=== PATIENT | female | born 1955 | race Caucasian/White ===

== ENCOUNTER 2019-10-23 14:34 | Observation (INO) ==
[2019-10-23] MEDS ORDERED: methylPREDNISolone 125 MG/2 ML VIAL IVP ONE (14:52)
[2019-10-23] MEDS ORDERED: Ipratropium/Albuterol Neb 3 ML IH ONE (14:52)
[2019-10-23] MEDS ORDERED: levoFLOXacin 750 MG/150 ML 750 MG/150 ML BAG IVPB ONE (14:59)
[2019-10-23 15:19] LABS: Basophils # 0.1 K/mcL (0.0-0.2); Basophils % 0.5 %; Eosinophils # 0.1 K/mcL (0.0-0.6); Eosinophils % 0.9 %; Hematocrit 39.6 % (35.3-44.9); Hemoglobin 12.9 g/dL (11.5-15.4); Immature Granulocytes % 1.7 % (0-4); Lymphocytes # 2.4 K/mcL (0.6-4.6); Mean Corpuscular HGB Conc 32.6 g/dL (31.6-35.5); Mean Corpuscular Hemoglobin 30.7 pg (28.0-33.3); Mean Corpuscular Volume 94.3 fL (83.0-100.0); Mean Platelet Volume 10.6 fL (9.4-12.4); Monocytes # 0.8 K/mcL (0.0-1.3); Monocytes % 6.3 %; Platelet Count 294 K/mcL (140-400); Red Cell Distribution Width 12.9 % (11.5-14.5); Segmented Neutrophils % 71.6 %; White Blood Count 12.6 K/mcL (4.3-11.1)
[2019-10-23 15:35] LABS: BUN/Creatinine Ratio 21 (6-26); Blood Urea Nitrogen 13 mg/dL (8-23); Calcium 9.6 mg/dL (8.6-10.3); Carbon Dioxide 31 mEq/L (23-29); Chloride 100 mEq/L (98-107); Glucose 148 mg/dL (70-105); Osmolality,Calculated 291 (280-300); Potassium 2.7 mEq/L (3.5-5.1); Sodium 139 mEq/L (136-145); eGFR For African Americans > 60 (> 60); eGFR For Non-African Americans > 60 (> 60)
[2019-10-23 15:36] LABS: Troponin I < 0.03 ng/mL (< 0.04)
[2019-10-23] MEDS ORDERED: 0.9 % Sodium Chloride 1,000 ML IVC ONE (15:38)
[2019-10-23 16:17] LABS: Magnesium 1.7 mg/dL (1.6-2.6)
[2019-10-23] MEDS ORDERED: Ondansetron 4 MG/2 ML VIAL IVP PRN (16:40)
[2019-10-23] MEDS ORDERED: Naloxone 0.4 MG/ML INJ IVP PRN (16:40)
[2019-10-23] MEDS ORDERED: *HR* HYDROcodone/Acet 7.5/325 mg TABLET PO ONE (17:01)
[2019-10-23] MEDS ORDERED: Isovue-370 500 ML BOTTLE IVP ONE (17:01)
[2019-10-23] MEDS: *HR* Heparin 5,000 UNIT/ML VIAL SQ SCH (21:03)
[2019-10-23] MEDS: Ipratropium/Albuterol Neb 3 ML IH SCH (22:19)
[2019-10-24] MEDS: Ipratropium/Albuterol Neb 3 ML IH SCH ×4 (04:13→22:39)
[2019-10-24] MEDS: *HR* Heparin 5,000 UNIT/ML VIAL SQ SCH ×3 (05:56→22:55)
[2019-10-24] MEDS: MethylPREDNISolone 40 MG/ML VIAL IVP SCH ×2 (05:56→17:45)
[2019-10-24 07:02] LABS: Basophils % 0.4 %; Eosinophils % 0.1 %; Hematocrit 33.9 % (35.3-44.9); Lymphocytes # 2.1 K/mcL (0.6-4.6); Lymphocytes % 22.5 %; Mean Corpuscular HGB Conc 32.4 g/dL (31.6-35.5); Mean Corpuscular Hemoglobin 30.6 pg (28.0-33.3); Mean Corpuscular Volume 94.4 fL (83.0-100.0); Mean Platelet Volume 10.6 fL (9.4-12.4); Monocytes # 0.7 K/mcL (0.0-1.3); Monocytes % 7.8 %; Neutrophils # 6.2 K/mcL (1.6-8.9); Platelet Count 247 K/mcL (140-400); Red Blood Count 3.59 M/mcL (3.82-4.97); Segmented Neutrophils % 67.2 %; White Blood Count 9.3 K/mcL (4.3-11.1)
[2019-10-24 07:21] LABS: BUN/Creatinine Ratio 28 (6-26); Blood Urea Nitrogen 14 mg/dL (8-23); Calcium 8.9 mg/dL (8.6-10.3); Carbon Dioxide 27 mEq/L (23-29); Chloride 106 mEq/L (98-107); Glucose 110 mg/dL (70-105); Osmolality,Calculated 295 (280-300); Sodium 142 mEq/L (136-145); eGFR For African Americans > 60 (> 60); eGFR For Non-African Americans > 60 (> 60)
[2019-10-24] MEDS: levoFLOXacin 750 MG/150 ML 750 MG/150 ML BAG IVPB SCH (09:39)
[2019-10-24] MEDS: Budesonide/Formoterol 160/4.5 1 PUFF INH IH SCH ×2 (09:54→22:39)
[2019-10-24] MEDS: clonazePAM 1 MG TABLET PO SCH ×2 (17:44→20:01)
[2019-10-24] MEDS: Acetaminophen 325 MG TABLET PO PRN (17:44)
[2019-10-24] MEDS: Topiramate 100 MG TABLET PO SCH (20:00)
[2019-10-24] MEDS: Mirtazapine 15 MG TABLET PO SCH (20:01)
[2019-10-24] MEDS: OLANZapine 10 MG TAB.RAPDIS PO SCH (20:01)
[2019-10-25] MEDS: Acetaminophen 325 MG TABLET PO PRN (00:35)
[2019-10-25] MEDS: Ipratropium/Albuterol Neb 3 ML IH SCH ×4 (03:26→21:45)
[2019-10-25] MEDS: *HR* Heparin 5,000 UNIT/ML VIAL SQ SCH ×3 (06:10→21:06)
[2019-10-25] MEDS: MethylPREDNISolone 40 MG/ML VIAL IVP SCH ×2 (06:10→20:38)
[2019-10-25] MEDS: levoFLOXacin 750 MG/150 ML 750 MG/150 ML BAG IVPB SCH (09:15)
[2019-10-25] MEDS: clonazePAM 1 MG TABLET PO SCH ×4 (09:16→21:06)
[2019-10-25] MEDS: BuPROPion XL (24 HR) 150 MG TABLET PO SCH (09:16)
[2019-10-25] MEDS: Loratadine 10 MG TABLET PO SCH (09:16)
[2019-10-25] MEDS: Fluticasone Propionate Nasal 50 MCG/SPRAY BOTTLE NS SCH (09:17)
[2019-10-25] MEDS: Budesonide/Formoterol 160/4.5 1 PUFF INH IH SCH ×2 (10:03→21:44)
[2019-10-25] MEDS: Topiramate 100 MG TABLET PO SCH (21:06)
[2019-10-25] MEDS: Mirtazapine 15 MG TABLET PO SCH (21:06)
[2019-10-25] MEDS: OLANZapine 10 MG TAB.RAPDIS PO SCH (21:06)
[2019-10-26] MEDS: Ipratropium/Albuterol Neb 3 ML IH SCH ×2 (03:31→09:35)
[2019-10-26] MEDS: MethylPREDNISolone 40 MG/ML VIAL IVP SCH (06:00)
[2019-10-26] MEDS: *HR* Heparin 5,000 UNIT/ML VIAL SQ SCH ×2 (06:01→13:02)
[2019-10-26 07:34] VITALS: BP 142/77
[2019-10-26] MEDS ORDERED: levoFLOXacin 750 MG TABLET PO SCH (09:00)
[2019-10-26] MEDS: Budesonide/Formoterol 160/4.5 1 PUFF INH IH SCH (09:35)
[2019-10-26] MEDS: Loratadine 10 MG TABLET PO SCH (10:07)
[2019-10-26] MEDS: clonazePAM 1 MG TABLET PO SCH ×2 (10:07→12:59)
[2019-10-26] MEDS: Fluticasone Propionate Nasal 50 MCG/SPRAY BOTTLE NS SCH (10:07)
[2019-10-26] MEDS: BuPROPion XL (24 HR) 150 MG TABLET PO SCH (10:07)
[2019-10-27] MEDS ORDERED: predniSONE 20 MG TABLET PO SCH (09:00)
== END 2019-10-26 14:27 | disposition home or self-care (01) ==
LOC: 2ANU 14:34 → EMEROOARM 14:34 → SUATTDRO 16:12 → 2ANU 17:45
PROVIDERS: ADMIT Family Medicine; ATTEND Family Medicine

== ENCOUNTER 2019-11-29 21:46 | Observation (INO) ==
[2019-11-29] MEDS ORDERED: Isovue-370 500 ML BOTTLE IVP ONE (22:27)
[2019-11-29] MEDS ORDERED: Ipratropium/Albuterol Neb 3 ML IH ONE (22:28)
[2019-11-29] MEDS ORDERED: 0.9 % Sodium Chloride 1,000 ML IVC ONE (22:28)
[2019-11-29] MEDS ORDERED: Ondansetron 4 MG/2 ML VIAL IVP ONE (22:28)
[2019-11-29] MEDS ORDERED: methylPREDNISolone 125 MG/2 ML VIAL IVP ONE (22:28)
[2019-11-29 22:37] LABS: Basophils % 0.2 %; Eosinophils # 0.1 K/mcL (0.0-0.6); Eosinophils % 0.7 %; Hematocrit 40.8 % (35.3-44.9); Lymphocytes # 2.2 K/mcL (0.6-4.6); Lymphocytes % 13.3 %; Mean Corpuscular HGB Conc 31.9 g/dL (31.6-35.5); Mean Corpuscular Hemoglobin 30.9 pg (28.0-33.3); Mean Corpuscular Volume 96.9 fL (83.0-100.0); Mean Platelet Volume 9.9 fL (9.4-12.4); Monocytes # 0.6 K/mcL (0.0-1.3); Monocytes % 3.7 %; Neutrophils # 13.5 K/mcL (1.6-8.9); Platelet Count 269 K/mcL (140-400); Red Blood Count 4.21 M/mcL (3.82-4.97); Segmented Neutrophils % 81.1 %; White Blood Count 16.6 K/mcL (4.3-11.1)
[2019-11-29 22:57] LABS: Alanine Aminotransferase 12 Units/L (7-52); Albumin 3.6 g/dL (3.5-5.7); Albumin/Globulin Ratio 1.4 (1.1-2.2); Alkaline Phosphatase 74 Units/L (34-104); Aspartate Amino Transferase 14 Units/L (13-39); BUN/Creatinine Ratio 19 (6-26); Bilirubin,Indirect 0.2 mg/dL (0.0-1.0); Bilirubin,Total 0.2 mg/dL (0.3-1.0); Blood Urea Nitrogen 14 mg/dL (8-23); Carbon Dioxide 31 mEq/L (23-29); Chloride 105 mEq/L (98-107); Globulin 2.6 g/dL (2.4-3.5); Glucose 130 mg/dL (70-105); Lipase 48 Units/L (11-82); Osmolality,Calculated 298 (280-300); Potassium 3.4 mEq/L (3.5-5.1); Sodium 143 mEq/L (136-145); Total Protein 6.2 g/dL (6.4-8.9); eGFR For African Americans > 60 (> 60); eGFR For Non-African Americans > 60 (> 60)
[2019-11-29 22:59] LABS: Troponin I < 0.03 ng/mL (< 0.04)
[2019-11-29 23:22] LABS: Bilirubin,Urine Small (Negative); Blood,Urine Negative (Negative); Clarity,Urine Cloudy (Clear); Color,Urine Dark Yellow (Yellow); Glucose,Urine (UA) Normal (Normal); Ketones,Urine Negative (Negative); Leukocyte Esterase,Urine Small (Negative); Nitrite,Urine Negative (Negative); Protein,Urine 30 mg/dL (Neg-Trace); Specific Gravity,Urine 1.021 (1.010-1.025); Urobilinogen,Urine Normal (Normal)
[2019-11-29 23:25] LABS: Bacteria,Urine None Seen per hpf (None-Few); Hyaline Casts,Urine None Seen per lpf (None-Few); Squamous Epithelial Cell,Urine Many per lpf (None-Few)
[2019-11-30] MEDS ORDERED: Ondansetron ODT 4 MG TAB.RAPDIS SL PRN (07:19)
[2019-11-30] MEDS ORDERED: Naloxone 0.4 MG/ML INJ IVP PRN (07:19)
[2019-11-30] MEDS ORDERED: Ipratropium/Albuterol Neb 3 ML IH PRN (07:20)
[2019-11-30] MEDS: Ipratropium/Albuterol Neb 3 ML IH SCH ×5 (08:04→23:14)
[2019-11-30] MEDS: Azithromycin 500 MG in 0.9 % Sodium Chloride 250 ML IVPB SCH (08:42)
[2019-11-30] MEDS: Loratadine 10 MG TABLET PO SCH (08:43)
[2019-11-30] MEDS: clonazePAM 1 MG TABLET PO SCH ×4 (08:43→22:30)
[2019-11-30] MEDS: BuPROPion XL (24 HR) 150 MG TABLET PO SCH (08:43)
[2019-11-30] MEDS: MethylPREDNISolone 40 MG/ML VIAL IVP SCH (08:44)
[2019-11-30] MEDS: Fluticasone Propionate Nasal 50 MCG/SPRAY BOTTLE NS SCH (09:02)
[2019-11-30 10:58] LABS: Basophils % 0.1 %; Hematocrit 36.1 % (35.3-44.9); Immature Granulocytes % 0.5 % (0-4); Lymphocytes # 0.6 K/mcL (0.6-4.6); Mean Corpuscular HGB Conc 30.2 g/dL (31.6-35.5); Mean Corpuscular Hemoglobin 30.9 pg (28.0-33.3); Mean Corpuscular Volume 102.3 fL (83.0-100.0); Mean Platelet Volume 10.5 fL (9.4-12.4); Monocytes # 0.2 K/mcL (0.0-1.3); Monocytes % 1.5 %; Neutrophils # 10.3 K/mcL (1.6-8.9); Platelet Count 215 K/mcL (140-400); Red Blood Count 3.53 M/mcL (3.82-4.97); Red Cell Distribution Width 14.1 % (11.5-14.5); Segmented Neutrophils % 92.9 %; White Blood Count 11.1 K/mcL (4.3-11.1)
[2019-11-30 11:00] LABS: Hemoglobin 10.9 g/dL (11.5-15.4)
[2019-11-30] MEDS: Acetaminophen 325 MG TABLET PO PRN ×2 (11:09→17:49)
[2019-11-30 11:15] LABS: BUN/Creatinine Ratio 25 (6-26); Blood Urea Nitrogen 14 mg/dL (8-23); Calcium 8.3 mg/dL (8.6-10.3); Carbon Dioxide 29 mEq/L (23-29); Chloride 108 mEq/L (98-107); Glucose 204 mg/dL (70-105); Osmolality,Calculated 298 (280-300); Potassium 4.2 mEq/L (3.5-5.1); Sodium 141 mEq/L (136-145); eGFR For African Americans > 60 (> 60); eGFR For Non-African Americans > 60 (> 60)
[2019-11-30] MEDS: *HR* Heparin 5,000 UNIT/ML VIAL SQ SCH (17:49)
[2019-11-30] MEDS ORDERED: Mirtazapine 15 MG TABLET PO SCH (21:00)
[2019-11-30] MEDS ORDERED: OLANZAPINE 20 MG PO SCH (21:00)
[2019-11-30] MEDS ORDERED: Topiramate 100 MG TABLET PO SCH (21:00)
[2019-12-01] MEDS: Ipratropium/Albuterol Neb 3 ML IH SCH ×2 (03:48→07:53)
[2019-12-01 05:02] VITALS: BP 132/73
[2019-12-01 05:47] LABS: Basophils % 0.1 %; Eosinophils # 0.1 K/mcL (0.0-0.6); Eosinophils % 0.6 %; Hematocrit 36.3 % (35.3-44.9); Hemoglobin 10.9 g/dL (11.5-15.4); Immature Granulocytes % 0.6 % (0-4); Lymphocytes # 3.7 K/mcL (0.6-4.6); Lymphocytes % 26.9 %; Mean Corpuscular Hemoglobin 30.8 pg (28.0-33.3); Mean Corpuscular Volume 102.5 fL (83.0-100.0); Mean Platelet Volume 10.1 fL (9.4-12.4); Monocytes # 0.7 K/mcL (0.0-1.3); Monocytes % 5.1 %; Neutrophils # 9.1 K/mcL (1.6-8.9); Platelet Count 211 K/mcL (140-400); Red Blood Count 3.54 M/mcL (3.82-4.97); Red Cell Distribution Width 14.1 % (11.5-14.5); Segmented Neutrophils % 66.7 %; White Blood Count 13.7 K/mcL (4.3-11.1)
[2019-12-01] MEDS: *HR* Heparin 5,000 UNIT/ML VIAL SQ SCH (05:49)
[2019-12-01 06:06] LABS: BUN/Creatinine Ratio 25 (6-26); Blood Urea Nitrogen 17 mg/dL (8-23); Calcium 8.7 mg/dL (8.6-10.3); Carbon Dioxide 33 mEq/L (23-29); Chloride 106 mEq/L (98-107); Glucose 91 mg/dL (70-105); Osmolality,Calculated 299 (280-300); Potassium 4.1 mEq/L (3.5-5.1); Sodium 144 mEq/L (136-145); eGFR For African Americans > 60 (> 60); eGFR For Non-African Americans > 60 (> 60)
[2019-12-01] MEDS: Loratadine 10 MG TABLET PO SCH (09:51)
[2019-12-01] MEDS: clonazePAM 1 MG TABLET PO SCH (09:51)
[2019-12-01] MEDS: BuPROPion XL (24 HR) 150 MG TABLET PO SCH (09:51)
[2019-12-01] MEDS: MethylPREDNISolone 40 MG/ML VIAL IVP SCH (09:52)
[2019-12-01] MEDS: Azithromycin 500 MG in 0.9 % Sodium Chloride 250 ML IVPB SCH (09:52)
[2019-12-01] MEDS: Fluticasone Propionate Nasal 50 MCG/SPRAY BOTTLE NS SCH (09:53)
== END 2019-12-01 11:46 | disposition home or self-care (01) ==
LOC: 3ANU 21:46 → EMEROOARM 21:46 → SUATTDRO 11-30 01:21 → 3ANU 11-30 02:02
PROVIDERS: ADMIT Family Medicine; ATTEND Internal Medicine

== ENCOUNTER 2021-06-16 10:38 | Inpatient (IN) ==
[2021-06-16] MEDS ORDERED: Ipratropium/Albuterol Neb 3 ML IH ONE (11:06)
[2021-06-16] MEDS ORDERED: methylPREDNISolone 125 MG/2 ML VIAL IVP ONE (11:06)
[2021-06-16 11:31] LABS: Basophils % 0.4 %; Eosinophils % 0.4 %; Hematocrit 35.8 % (35.3-44.9); Hemoglobin 10.6 g/dL (11.5-15.4); Immature Granulocytes % 0.3 % (0-4); Lymphocytes # 1.1 K/mcL (0.6-4.6); Lymphocytes % 13.4 %; Mean Corpuscular HGB Conc 29.6 g/dL (31.6-35.5); Mean Corpuscular Hemoglobin 29.5 pg (28.0-33.3); Mean Corpuscular Volume 99.7 fL (83.0-100.0); Mean Platelet Volume 11.2 fL (9.4-12.4); Monocytes # 0.4 K/mcL (0.0-1.3); Monocytes % 5.6 %; Neutrophils # 6.3 K/mcL (1.6-8.9); Platelet Count 229 K/mcL (140-400); Red Blood Count 3.59 M/mcL (3.82-4.97); Red Cell Distribution Width 12.8 % (11.5-14.5); Segmented Neutrophils % 79.9 %; White Blood Count 7.9 K/mcL (4.3-11.1)
[2021-06-16 12:24] LABS: BUN/Creatinine Ratio 18 (6-26); Blood Urea Nitrogen 10 mg/dL (8-23); Calcium 9.4 mg/dL (8.6-10.3); Carbon Dioxide 40 mEq/L (23-29); Chloride 93 mEq/L (98-107); Glucose 126 mg/dL (70-105); Osmolality,Calculated 289 (280-300); Potassium 4.3 mEq/L (3.5-5.1); Sodium 139 mEq/L (136-145); Troponin I < 0.03 ng/mL (< 0.04); eGFR For African Americans > 60 (> 60); eGFR For Non-African Americans > 60 (> 60)
[2021-06-16] MEDS ORDERED: Ondansetron ODT 4 MG TAB.RAPDIS SL ONE (13:40)
[2021-06-16 14:33] LABS: VBG HCO3 42 mEq/L (21-27); VBG PCO2 89 mmHg (41-51); VBG PH 7.29 pH Units (7.32-7.42); VBG PO2 59 mmHg (25-50)
[2021-06-16] MEDS ORDERED: Naloxone 0.4 MG/ML INJ IVP PRN (16:51)
[2021-06-16] MEDS ORDERED: Ondansetron 4 MG/2 ML VIAL IVP PRN (16:51)
[2021-06-16] MEDS ORDERED: Isovue-370 500 ML BOTTLE IVP ONE (17:09)
[2021-06-16] MEDS: Ipratropium/Albuterol Neb 3 ML IH SCH (20:55)
[2021-06-16] MEDS ORDERED: *HR* LORazepam 2 MG/ML VIAL IVP ONE (22:29)
[2021-06-16] MEDS: methylPREDNISolone 125 MG/2 ML VIAL IVP SCH (22:42)
[2021-06-17] MEDS: Ipratropium/Albuterol Neb 3 ML IH SCH ×7 (00:08→23:20)
[2021-06-17 00:34] LABS: Basophils % 0.2 %; Hematocrit 34.2 % (35.3-44.9); Hemoglobin 10.2 g/dL (11.5-15.4); Immature Granulocytes % 0.2 % (0-4); Lymphocytes # 0.5 K/mcL (0.6-4.6); Lymphocytes % 9.3 %; Mean Corpuscular HGB Conc 29.8 g/dL (31.6-35.5); Mean Corpuscular Hemoglobin 28.7 pg (28.0-33.3); Mean Corpuscular Volume 96.1 fL (83.0-100.0); Mean Platelet Volume 10.8 fL (9.4-12.4); Monocytes # 0.3 K/mcL (0.0-1.3); Monocytes % 4.8 %; Neutrophils # 4.5 K/mcL (1.6-8.9); Platelet Count 217 K/mcL (140-400); Red Blood Count 3.56 M/mcL (3.82-4.97); Red Cell Distribution Width 12.8 % (11.5-14.5); Segmented Neutrophils % 85.5 %; White Blood Count 5.3 K/mcL (4.3-11.1)
[2021-06-17 00:37] LABS: VBG HCO3 37 mEq/L (21-27); VBG PCO2 62 mmHg (41-51); VBG PH 7.39 pH Units (7.32-7.42); VBG PO2 70 mmHg (25-50)
[2021-06-17 00:57] LABS: Alanine Aminotransferase 9 Units/L (7-52); Albumin 3.7 g/dL (3.5-5.7); Albumin/Globulin Ratio 1.3 (1.1-2.2); Alkaline Phosphatase 120 Units/L (34-104); Aspartate Amino Transferase 11 Units/L (13-39); BUN/Creatinine Ratio 33 (6-26); Bilirubin,Total 0.4 mg/dL (0.3-1.0); Blood Urea Nitrogen 16 mg/dL (8-23); Calcium 9.3 mg/dL (8.6-10.3); Carbon Dioxide 40 mEq/L (23-29); Chloride 95 mEq/L (98-107); Chol/HDL Ratio 3.1 (0-4.9); Cholesterol 217 mg/dL (< 200); Globulin 2.8 g/dL (2.4-3.5); Glucose 96 mg/dL (70-105); HDL Cholesterol 70 mg/dL (40-59); LDL Cholesterol,Calculated 127 mg/dL (< 100); Osmolality,Calculated 291 (280-300); Sodium 140 mEq/L (136-145); Total Protein 6.5 g/dL (6.4-8.9); Triglycerides 102 mg/dL (< 150); eGFR For African Americans > 60 (> 60); eGFR For Non-African Americans > 60 (> 60)
[2021-06-17] MEDS: methylPREDNISolone 125 MG/2 ML VIAL IVP SCH ×4 (02:18→17:46)
[2021-06-17 03:44] LABS: ABG Base Excess 5 mEq/L (-2 to 3); ABG HCO3 36 mEq/L (21-27); ABG Oxygen Saturation 92 % (95-98); ABG PCO2 89 mmHg (35-45); ABG PH 7.22 pH Units (7.32-7.45); ABG PO2 80 mmHg (85-104); ABG TCO2 39 mEq/L (20-26)
[2021-06-17 03:57] LABS: ABG Base Excess 15 mEq/L (-2 to 3); ABG HCO3 44 mEq/L (21-27); ABG Oxygen Saturation 96 % (95-98); ABG PCO2 75 mmHg (35-45); ABG PH 7.37 pH Units (7.32-7.45); ABG PO2 87 mmHg (85-104); ABG TCO2 46 mEq/L (20-26)
[2021-06-17] MEDS: clonazePAM 0.5 MG TABLET PO PRN (12:30)
[2021-06-17] MEDS: Gabapentin 300 MG CAPSULE PO SCH ×2 (14:47→19:42)
[2021-06-17] MEDS: Budesonide/Formoterol 160/4.5 1 PUFF INH IH SCH (19:46)
[2021-06-18] MEDS: methylPREDNISolone 125 MG/2 ML VIAL IVP SCH ×4 (02:00→17:43)
[2021-06-18] MEDS: Fluticasone Propionate Nasal 50 MCG/SPRAY BOTTLE NS SCH ×3 (02:02→19:21)
[2021-06-18 03:56] LABS: Basophils % 0.1 %; Hematocrit 34.6 % (35.3-44.9); Hemoglobin 10.6 g/dL (11.5-15.4); Immature Granulocytes % 0.3 % (0-4); Lymphocytes # 1.9 K/mcL (0.6-4.6); Lymphocytes % 18.7 %; Mean Corpuscular HGB Conc 30.6 g/dL (31.6-35.5); Mean Corpuscular Hemoglobin 28.2 pg (28.0-33.3); Mean Platelet Volume 11.5 fL (9.4-12.4); Monocytes # 0.8 K/mcL (0.0-1.3); Monocytes % 7.4 %; Neutrophils # 7.5 K/mcL (1.6-8.9); Platelet Count 271 K/mcL (140-400); Red Blood Count 3.76 M/mcL (3.82-4.97); Red Cell Distribution Width 13.2 % (11.5-14.5); Segmented Neutrophils % 73.5 %
[2021-06-18 03:57] LABS: White Blood Count 10.2 K/mcL (4.3-11.1)
[2021-06-18 04:18] LABS: BUN/Creatinine Ratio 46 (6-26); Blood Urea Nitrogen 26 mg/dL (8-23); Calcium 9.7 mg/dL (8.6-10.3); Carbon Dioxide 35 mEq/L (23-29); Chloride 95 mEq/L (98-107); Glucose 94 mg/dL (70-105); Osmolality,Calculated 291 (280-300); Potassium 3.8 mEq/L (3.5-5.1); Sodium 138 mEq/L (136-145); eGFR For African Americans > 60 (> 60); eGFR For Non-African Americans > 60 (> 60)
[2021-06-18] MEDS: Ipratropium/Albuterol Neb 3 ML IH SCH ×6 (04:34→23:24)
[2021-06-18 04:46] LABS: ABG Base Excess 10 mEq/L (-2 to 3); ABG HCO3 37 mEq/L (21-27); ABG Oxygen Saturation 96 % (95-98); ABG PCO2 58 mmHg (35-45); ABG PH 7.41 pH Units (7.32-7.45); ABG PO2 81 mmHg (85-104); ABG TCO2 39 mEq/L (20-26)
[2021-06-18] MEDS: Budesonide/Formoterol 160/4.5 1 PUFF INH IH SCH ×2 (07:40→19:56)
[2021-06-18] MEDS: BuPROPion XL (24 HR) 150 MG TABLET PO SCH (09:25)
[2021-06-18] MEDS: lisinopriL 20 MG TABLET PO SCH (09:25)
[2021-06-18] MEDS: Gabapentin 300 MG CAPSULE PO SCH ×3 (09:26→19:21)
[2021-06-18] MEDS ORDERED: Acetaminophen 325 MG TABLET PO PRN (11:22)
[2021-06-18] MEDS: clonazePAM 0.5 MG TABLET PO PRN (14:57)
[2021-06-19] MEDS: methylPREDNISolone 125 MG/2 ML VIAL IVP SCH ×5 (00:24→23:37)
[2021-06-19] MEDS: Ipratropium/Albuterol Neb 3 ML IH SCH ×6 (03:48→23:14)
[2021-06-19] MEDS: Budesonide/Formoterol 160/4.5 1 PUFF INH IH SCH ×2 (07:25→19:47)
[2021-06-19 08:28] LABS: BUN/Creatinine Ratio 43 (6-26); Blood Urea Nitrogen 30 mg/dL (8-23); Calcium 9.7 mg/dL (8.6-10.3); Carbon Dioxide 37 mEq/L (23-29); Chloride 92 mEq/L (98-107); Glucose 118 mg/dL (70-105); Osmolality,Calculated 285 (280-300); Potassium 4.4 mEq/L (3.5-5.1); Sodium 134 mEq/L (136-145); eGFR For African Americans > 60 (> 60); eGFR For Non-African Americans > 60 (> 60)
[2021-06-19] MEDS: lisinopriL 20 MG TABLET PO SCH (09:08)
[2021-06-19] MEDS: BuPROPion XL (24 HR) 150 MG TABLET PO SCH (09:08)
[2021-06-19] MEDS: Fluticasone Propionate Nasal 50 MCG/SPRAY BOTTLE NS SCH ×2 (09:11→20:22)
[2021-06-19] MEDS: Gabapentin 300 MG CAPSULE PO SCH ×3 (09:11→20:21)
[2021-06-19] MEDS: clonazePAM 0.5 MG TABLET PO PRN ×2 (09:15→20:21)
[2021-06-19] MEDS: *HR* Enoxaparin 30 MG/0.3 ML SYRINGE SQ SCH (12:45)
[2021-06-19 13:03] LABS: Hematocrit 36.3 % (35.3-44.9); Hemoglobin 11.2 g/dL (11.5-15.4); Immature Granulocytes % 0.4 % (0-4); Lymphocytes # 0.5 K/mcL (0.6-4.6); Lymphocytes % 4.7 %; Mean Corpuscular HGB Conc 30.9 g/dL (31.6-35.5); Mean Corpuscular Hemoglobin 28.4 pg (28.0-33.3); Mean Corpuscular Volume 92.1 fL (83.0-100.0); Mean Platelet Volume 12.1 fL (9.4-12.4); Monocytes # 0.3 K/mcL (0.0-1.3); Monocytes % 3.2 %; Neutrophils # 9.5 K/mcL (1.6-8.9); Platelet Count 289 K/mcL (140-400); Red Blood Count 3.94 M/mcL (3.82-4.97); Red Cell Distribution Width 13.2 % (11.5-14.5); Segmented Neutrophils % 91.7 %; White Blood Count 10.3 K/mcL (4.3-11.1)
[2021-06-19] MEDS ORDERED: Topiramate 100 MG TABLET PO SCH (21:00)
[2021-06-20 00:52] LABS: Basophils % 0.1 %; Hematocrit 33.7 % (35.3-44.9); Hemoglobin 10.3 g/dL (11.5-15.4); Immature Granulocytes % 0.4 % (0-4); Lymphocytes # 0.5 K/mcL (0.6-4.6); Lymphocytes % 4.4 %; Mean Corpuscular HGB Conc 30.6 g/dL (31.6-35.5); Mean Corpuscular Hemoglobin 28.6 pg (28.0-33.3); Mean Corpuscular Volume 93.6 fL (83.0-100.0); Mean Platelet Volume 11.6 fL (9.4-12.4); Monocytes # 0.4 K/mcL (0.0-1.3); Monocytes % 3.2 %; Neutrophils # 10.5 K/mcL (1.6-8.9); Platelet Count 239 K/mcL (140-400); Red Cell Distribution Width 13.3 % (11.5-14.5); Segmented Neutrophils % 91.9 %; White Blood Count 11.5 K/mcL (4.3-11.1)
[2021-06-20 01:09] LABS: Calcium 9.2 mg/dL (8.6-10.3); Potassium 4.3 mEq/L (3.5-5.1)
[2021-06-20] MEDS: Ipratropium/Albuterol Neb 3 ML IH SCH ×5 (04:26→20:13)
[2021-06-20] MEDS: methylPREDNISolone 125 MG/2 ML VIAL IVP SCH ×4 (05:03→23:34)
[2021-06-20] MEDS: *HR* Enoxaparin 30 MG/0.3 ML SYRINGE SQ SCH (05:03)
[2021-06-20 05:33] LABS: ABG Base Excess 7 mEq/L (-2 to 3); ABG HCO3 35 mEq/L (21-27); ABG Oxygen Saturation 93 % (95-98); ABG PCO2 60 mmHg (35-45); ABG PH 7.37 pH Units (7.32-7.45); ABG PO2 73 mmHg (85-104); ABG TCO2 36 mEq/L (20-26)
[2021-06-20] MEDS: Budesonide/Formoterol 160/4.5 1 PUFF INH IH SCH ×2 (07:12→20:13)
[2021-06-20] MEDS: BuPROPion XL (24 HR) 150 MG TABLET PO SCH (09:30)
[2021-06-20] MEDS: Gabapentin 300 MG CAPSULE PO SCH (09:30)
[2021-06-20] MEDS: lisinopriL 20 MG TABLET PO SCH (09:30)
[2021-06-20] MEDS: 0.9 % Sodium Chloride 1,000 ML IVC SCH ×2 (09:32→21:40)
[2021-06-20] MEDS: clonazePAM 0.5 MG TABLET PO PRN ×3 (09:32→21:41)
[2021-06-20] MEDS: Fluticasone Propionate Nasal 50 MCG/SPRAY BOTTLE NS SCH ×2 (09:33→23:34)
[2021-06-20 11:51] LABS: Bilirubin,Urine Negative (Negative); Blood,Urine Negative (Negative); Clarity,Urine Clear (Clear); Color,Urine Light-Yellow (Yellow); Glucose,Urine (UA) Normal (Normal); Ketones,Urine Negative (Negative); Leukocyte Esterase,Urine Negative (Negative); Nitrite,Urine Negative (Negative); PH,Urine 7.5 pH Units (5.0-8.0); Protein,Urine Negative (Neg-Trace); Specific Gravity,Urine 1.013 (1.010-1.025); Urobilinogen,Urine Normal (Normal)
[2021-06-20] MEDS ORDERED: Topiramate 25 MG TABLET PO SCH (21:00)
[2021-06-21] MEDS: Ipratropium/Albuterol Neb 3 ML IH SCH ×4 (00:05→11:19)
[2021-06-21 02:27] LABS: Basophils % 0.1 %; Hematocrit 36.6 % (35.3-44.9); Hemoglobin 10.9 g/dL (11.5-15.4); Immature Granulocytes % 0.5 % (0-4); Lymphocytes % 7.9 %; Mean Corpuscular HGB Conc 29.8 g/dL (31.6-35.5); Mean Corpuscular Hemoglobin 28.5 pg (28.0-33.3); Mean Corpuscular Volume 95.6 fL (83.0-100.0); Mean Platelet Volume 11.9 fL (9.4-12.4); Monocytes # 0.9 K/mcL (0.0-1.3); Monocytes % 6.9 %; Neutrophils # 10.8 K/mcL (1.6-8.9); Platelet Count 241 K/mcL (140-400); Red Blood Count 3.83 M/mcL (3.82-4.97); Red Cell Distribution Width 13.6 % (11.5-14.5); Segmented Neutrophils % 84.6 %; White Blood Count 12.7 K/mcL (4.3-11.1)
[2021-06-21 02:42] LABS: BUN/Creatinine Ratio 44 (6-26); Blood Urea Nitrogen 40 mg/dL (8-23); Calcium 8.9 mg/dL (8.6-10.3); Carbon Dioxide 30 mEq/L (23-29); Chloride 99 mEq/L (98-107); Glucose 84 mg/dL (70-105); Osmolality,Calculated 289 (280-300); Potassium 4.5 mEq/L (3.5-5.1); Sodium 135 mEq/L (136-145); eGFR For African Americans > 60 (> 60); eGFR For Non-African Americans > 60 (> 60)
[2021-06-21] MEDS: methylPREDNISolone 125 MG/2 ML VIAL IVP SCH ×2 (05:19→10:28)
[2021-06-21] MEDS: *HR* Enoxaparin 30 MG/0.3 ML SYRINGE SQ SCH (05:20)
[2021-06-21] MEDS: Budesonide/Formoterol 160/4.5 1 PUFF INH IH SCH (07:18)
[2021-06-21] MEDS: 0.9 % Sodium Chloride 1,000 ML IVC SCH (07:33)
[2021-06-21] MEDS: BuPROPion XL (24 HR) 150 MG TABLET PO SCH (07:34)
[2021-06-21] MEDS: Fluticasone Propionate Nasal 50 MCG/SPRAY BOTTLE NS SCH (07:35)
[2021-06-21] MEDS ORDERED: Nicotine 21 MG PATCH.TD24 TD SCH (09:00)
[2021-06-21] MEDS ORDERED: lisinopriL 10 MG TABLET PO SCH (10:15)
[2021-06-21] MEDS: clonazePAM 0.5 MG TABLET PO PRN (10:28)
[2021-06-21 10:58] VITALS: BP 117/55; PULSE 84; TEMP 98.2
[2021-06-21 13:28] VITALS: O2SAT 98
[2021-06-21] MEDS ORDERED: Gabapentin 300 MG CAPSULE PO SCH (15:00)
[2021-06-21] MEDS ORDERED: Topiramate 25 MG TABLET PO SCH (21:00)
== END 2021-06-21 14:06 | disposition home or self-care (01) | DRG 189 ==
LOC: SUATTDRO → 2ANU 10:38 → EMEROOARM 10:38 → SUATTDRO 19:19 → 2ANU 20:41 → SUATTDRO 06-18 08:13
PROVIDERS: ADMIT Hospitalist; ATTEND Internal Medicine

== ENCOUNTER 2021-07-24 14:32 | Inpatient (IN) ==
[2021-07-24] MEDS ORDERED: Isovue-370 500 ML BOTTLE IVP ONE ×2 (15:02→17:47)
[2021-07-24 15:33] LABS: Hemoglobin 10.1 g/dL (11.5-15.4); Mean Corpuscular Hemoglobin 28.5 pg (28.0-33.3); Mean Corpuscular Volume 95.8 fL (83.0-100.0)
[2021-07-24 15:35] LABS: Basophils % 0.1 %; Immature Granulocytes % 0.7 % (0-4); Lymphocytes # 0.7 K/mcL (0.6-4.6); Lymphocytes % 4.2 %; Mean Corpuscular HGB Conc 29.7 g/dL (31.6-35.5); Mean Platelet Volume 11.5 fL (9.4-12.4); Monocytes # 0.6 K/mcL (0.0-1.3); Monocytes % 3.6 %; Neutrophils # 16.1 K/mcL (1.6-8.9); Platelet Count 276 K/mcL (140-400); Red Blood Count 3.55 M/mcL (3.82-4.97); Segmented Neutrophils % 91.4 %; White Blood Count 17.6 K/mcL (4.3-11.1)
[2021-07-24 15:39] LABS: Prothrombin Time 11.4 Seconds (9.4-12.1)
[2021-07-24 15:42] LABS: Activated Partial Thrombo Time 25.1 Seconds (26.0-36.0)
[2021-07-24 15:50] LABS: ABG Base Excess 6 mEq/L (-2 to 3); ABG HCO3 32 mEq/L (21-27); ABG Oxygen Saturation 97 % (95-98); ABG PCO2 53 mmHg (35-45); ABG PH 7.39 pH Units (7.32-7.45); ABG PO2 99 mmHg (85-104); ABG TCO2 33 mEq/L (20-26)
[2021-07-24 15:54] LABS: Alanine Aminotransferase 13 Units/L (7-52); Albumin 4.5 g/dL (3.5-5.7); Albumin/Globulin Ratio 1.5 (1.1-2.2); Alkaline Phosphatase 96 Units/L (34-104); Aspartate Amino Transferase 19 Units/L (13-39); BUN/Creatinine Ratio 32 (6-26); Bilirubin,Direct 0.1 mg/dL (0.0-0.2); Bilirubin,Indirect 0.3 mg/dL (0.0-1.0); Bilirubin,Total 0.4 mg/dL (0.3-1.0); Blood Urea Nitrogen 21 mg/dL (8-23); Carbon Dioxide 34 mEq/L (23-29); Chloride 99 mEq/L (98-107); Ethanol < 10 mg/dL (Less than 10); Glucose 109 mg/dL (70-105); Osmolality,Calculated 296 (280-300); Potassium 4.2 mEq/L (3.5-5.1); Sodium 141 mEq/L (136-145); Total Protein 7.5 g/dL (6.4-8.9); Troponin I < 0.03 ng/mL (< 0.04); eGFR For African Americans > 60 (> 60); eGFR For Non-African Americans > 60 (> 60)
[2021-07-24 17:26] LABS: Bilirubin,Urine Negative (Negative); Blood,Urine Negative (Negative); Clarity,Urine Clear (Clear); Color,Urine Yellow (Yellow); Glucose,Urine (UA) Normal (Normal); Ketones,Urine Trace mg/dL (Negative); Leukocyte Esterase,Urine Negative (Negative); Nitrite,Urine Negative (Negative); Protein,Urine Trace mg/dL (Neg-Trace); Specific Gravity,Urine > 1.030 (1.010-1.025); Urobilinogen,Urine Normal (Normal)
[2021-07-24 17:41] LABS: Amphetamine Screen,Urine Negative ng/mL (Cutoff=1000); Barbiturate Screen,Urine Negative ng/mL (Cutoff=200); Benzodiazepines Screen,Urine Negative ng/mL (Cutoff=200); Cannabinoid Screen,Urine Negative ng/mL (Cutoff = 50); Cocaine Screen,Urine Negative ng/mL (Cutoff= 300); Opiate Screen,Urine Negative ng/mL (Cutoff=300); Phencyclidine Screen,Urine Negative ng/mL (Cutoff=25)
[2021-07-24] MEDS ORDERED: Cefepime HCl 2,000 MG in Water for inj. (sterile) 20 ML IVP ONE (18:21)
[2021-07-24] MEDS ORDERED: Vancomycin 500 MG in 0.9 % Sodium Chloride Mini Bag 100 ML IVPB ONE (18:36)
[2021-07-24] MEDS ORDERED: Vancomycin 500 MG in 0.9 % Sodium Chloride 250 ML IVPB SCH (19:00)
[2021-07-24] MEDS ORDERED: Acetaminophen 325 MG TABLET PO PRN (23:41)
[2021-07-24] MEDS ORDERED: Ondansetron 4 MG/2 ML VIAL IVP PRN (23:41)
[2021-07-24] MEDS ORDERED: Naloxone 0.4 MG/ML INJ IVP PRN (23:41)
[2021-07-25 00:08] LABS: Folate > 22.3 ng/mL (3.0-16.0); Vitamin B12 372 pg/mL (250-1100)
[2021-07-25] MEDS: Acyclovir 400 MG in D5% in Water 100 ML IVPB SCH ×3 (00:34→16:25)
[2021-07-25 00:52] LABS: Basophils % 0.1 %; Hemoglobin 9.3 g/dL (11.5-15.4); Lymphocytes % 8.7 %; Mean Corpuscular Hemoglobin 28.4 pg (28.0-33.3); Mean Corpuscular Volume 94.5 fL (83.0-100.0); Monocytes # 0.7 K/mcL (0.0-1.3); Monocytes % 6.2 %; Neutrophils # 10.1 K/mcL (1.6-8.9); Platelet Count 245 K/mcL (140-400); Red Blood Count 3.28 M/mcL (3.82-4.97); Red Cell Distribution Width 15.3 % (11.5-14.5)
[2021-07-25 01:12] LABS: Alanine Aminotransferase 13 Units/L (7-52); Albumin 4.2 g/dL (3.5-5.7); Albumin/Globulin Ratio 1.5 (1.1-2.2); Alkaline Phosphatase 88 Units/L (34-104); Aspartate Amino Transferase 18 Units/L (13-39); BUN/Creatinine Ratio 35 (6-26); Bilirubin,Total 0.3 mg/dL (0.3-1.0); Blood Urea Nitrogen 22 mg/dL (8-23); Calcium 9.5 mg/dL (8.6-10.3); Carbon Dioxide 32 mEq/L (23-29); Chloride 102 mEq/L (98-107); Globulin 2.8 g/dL (2.4-3.5); Glucose 136 mg/dL (70-105); Osmolality,Calculated 299 (280-300); Sodium 142 mEq/L (136-145); eGFR For African Americans > 60 (> 60); eGFR For Non-African Americans > 60 (> 60)
[2021-07-25] MEDS: Cefepime HCl 1,000 MG in Water for inj. (sterile) 10 ML IVP SCH ×2 (03:40→13:44)
[2021-07-25] MEDS: Vancomycin 500 MG in 0.9 % Sodium Chloride Mini Bag 100 ML IVPB SCH ×2 (06:05→18:35)
[2021-07-25] MEDS: *HR* Heparin 5,000 UNIT/ML VIAL SQ SCH ×2 (06:05→18:34)
[2021-07-25] MEDS: Budesonide/Formoterol 160/4.5 1 PUFF INH IH SCH (08:59)
[2021-07-25] MEDS ORDERED: Vancomycin 500 MG in 0.9 % Sodium Chloride 250 ML IVPB SCH (09:00)
[2021-07-25] MEDS ORDERED: predniSONE 20 MG TABLET PO SCH ×2 (09:00)
[2021-07-25] MEDS ORDERED: *HR* LORazepam 2 MG/ML VIAL IVP ONE (09:48)
[2021-07-25] MEDS ORDERED: *HR* LORazepam 2 MG/ML VIAL ONE (09:50)
[2021-07-25] MEDS: Aspirin 81 MG TAB.CHEW PO SCH (10:39)
[2021-07-25] MEDS: Fluticasone Propionate Nasal 50 MCG/SPRAY BOTTLE NS SCH ×2 (10:39→20:41)
[2021-07-25] MEDS: Topiramate 100 MG TABLET PO SCH ×2 (20:42→20:49)
[2021-07-26] MEDS: Acyclovir 400 MG in D5% in Water 100 ML IVPB SCH ×5 (00:08→23:55)
[2021-07-26] MEDS: *HR* Heparin 5,000 UNIT/ML VIAL SQ SCH ×2 (06:08→17:59)
[2021-07-26 06:19] LABS: Hematocrit 32.5 % (35.3-44.9); Hemoglobin 9.7 g/dL (11.5-15.4); Mean Corpuscular HGB Conc 29.8 g/dL (31.6-35.5); Mean Corpuscular Volume 93.7 fL (83.0-100.0); Mean Platelet Volume 10.9 fL (9.4-12.4); Platelet Count 324 K/mcL (140-400); Red Blood Count 3.47 M/mcL (3.82-4.97); Red Cell Distribution Width 15.8 % (11.5-14.5); White Blood Count 16.7 K/mcL (4.3-11.1)
[2021-07-26 06:36] LABS: BUN/Creatinine Ratio 28 (6-26); Blood Urea Nitrogen 19 mg/dL (8-23); Calcium 9.6 mg/dL (8.6-10.3); Carbon Dioxide 34 mEq/L (23-29); Chloride 100 mEq/L (98-107); Glucose 214 mg/dL (70-105); Osmolality,Calculated 301 (280-300); Potassium 3.5 mEq/L (3.5-5.1); Sodium 141 mEq/L (136-145); eGFR For African Americans > 60 (> 60); eGFR For Non-African Americans > 60 (> 60)
[2021-07-26] MEDS: Vancomycin 500 MG in 0.9 % Sodium Chloride Mini Bag 100 ML IVPB SCH (06:53)
[2021-07-26] MEDS ORDERED: Vancomycin 500 MG in 0.9 % Sodium Chloride Mini Bag 100 ML IVPB ONE (08:00)
[2021-07-26] MEDS ORDERED: cefTRIAXone 1,000 MG in 0.9 % Sodium Chloride Mini Bag 100 ML IVPB SCH (09:00)
[2021-07-26] MEDS ORDERED: predniSONE 10 MG TABLET PO SCH (09:00)
[2021-07-26] MEDS: Aspirin 81 MG TAB.CHEW PO SCH (09:25)
[2021-07-26] MEDS: Fluticasone Propionate Nasal 50 MCG/SPRAY BOTTLE NS SCH ×2 (09:34→20:46)
[2021-07-26] MEDS: Budesonide/Formoterol 160/4.5 1 PUFF INH IH SCH (10:10)
[2021-07-26] MEDS ORDERED: Haloperidol Lactate 5 MG/ML VIAL IM ONE (10:49)
[2021-07-26] MEDS ORDERED: Haloperidol Lactate 5 MG/ML VIAL IVP ONE (11:10)
[2021-07-26 14:26] LABS: Red Blood Cell,CSF < 2000 RBC/mcL
[2021-07-26 14:27] LABS: Appearance,CSF Clear (Clear)
[2021-07-26 15:00] LABS: Glucose,CSF 109 mg/dL (40-70); Total Protein,CSF 27 mg/dL (15-45)
[2021-07-26] MEDS: Topiramate 100 MG TABLET PO SCH (20:47)
[2021-07-26] MEDS ORDERED: *HR* LORazepam 2 MG/ML VIAL IVP ONE (22:42)
[2021-07-27] MEDS: *HR* Heparin 5,000 UNIT/ML VIAL SQ SCH ×2 (06:25→17:25)
[2021-07-27] MEDS ORDERED: *HR* LORazepam 2 MG/ML VIAL IVP ONE (06:29)
[2021-07-27 07:51] LABS: Basophils % 0.1 %; Eosinophils % 0.2 %; Hematocrit 33.4 % (35.3-44.9); Hemoglobin 9.9 g/dL (11.5-15.4); Lymphocytes # 1.5 K/mcL (0.6-4.6); Lymphocytes % 9.4 %; Mean Corpuscular HGB Conc 29.6 g/dL (31.6-35.5); Mean Corpuscular Hemoglobin 28.3 pg (28.0-33.3); Mean Corpuscular Volume 95.4 fL (83.0-100.0); Mean Platelet Volume 11.4 fL (9.4-12.4); Monocytes % 6.2 %; Neutrophils # 13.2 K/mcL (1.6-8.9); Platelet Count 262 K/mcL (140-400); Red Cell Distribution Width 15.8 % (11.5-14.5); Segmented Neutrophils % 83.1 %; White Blood Count 15.9 K/mcL (4.3-11.1)
[2021-07-27] MEDS: Budesonide/Formoterol 160/4.5 1 PUFF INH IH SCH (08:02)
[2021-07-27 08:17] LABS: BUN/Creatinine Ratio 30 (6-26); Blood Urea Nitrogen 18 mg/dL (8-23); Calcium 9.6 mg/dL (8.6-10.3); Carbon Dioxide 34 mEq/L (23-29); Chloride 101 mEq/L (98-107); Glucose 111 mg/dL (70-105); Magnesium 1.7 mg/dL (1.6-2.6); Osmolality,Calculated 297 (280-300); Potassium 3.7 mEq/L (3.5-5.1); Sodium 142 mEq/L (136-145); eGFR For African Americans > 60 (> 60); eGFR For Non-African Americans > 60 (> 60)
[2021-07-27] MEDS: Acyclovir 400 MG in D5% in Water 100 ML IVPB SCH ×2 (10:36→16:07)
[2021-07-27] MEDS: Aspirin 81 MG TAB.CHEW PO SCH (10:37)
[2021-07-27] MEDS: Fluticasone Propionate Nasal 50 MCG/SPRAY BOTTLE NS SCH ×2 (10:37→20:46)
[2021-07-27] MEDS: predniSONE 10 MG TABLET PO SCH (10:37)
[2021-07-27] MEDS ORDERED: Ketorolac 15 MG/ML VIAL IVP ONE (17:26)
[2021-07-27] MEDS ORDERED: Simethicone 80 MG TAB.CHEW PO PRN (20:26)
[2021-07-27] MEDS: Topiramate 100 MG TABLET PO SCH (20:45)
[2021-07-28] MEDS: Acyclovir 400 MG in D5% in Water 100 ML IVPB SCH ×2 (00:22→07:50)
[2021-07-28] MEDS: *HR* Heparin 5,000 UNIT/ML VIAL SQ SCH (06:15)
[2021-07-28] MEDS: predniSONE 10 MG TABLET PO SCH (07:50)
[2021-07-28] MEDS: Aspirin 81 MG TAB.CHEW PO SCH (07:50)
[2021-07-28] MEDS: Fluticasone Propionate Nasal 50 MCG/SPRAY BOTTLE NS SCH (07:51)
[2021-07-28 07:55] VITALS: PULSE 88
[2021-07-28 08:21] LABS: BUN/Creatinine Ratio 37 (6-26); Blood Urea Nitrogen 24 mg/dL (8-23); Calcium 10.3 mg/dL (8.6-10.3); Carbon Dioxide 35 mEq/L (23-29); Chloride 99 mEq/L (98-107); Glucose 123 mg/dL (70-105); Osmolality,Calculated 297 (280-300); Potassium 3.9 mEq/L (3.5-5.1); Sodium 141 mEq/L (136-145); eGFR For African Americans > 60 (> 60); eGFR For Non-African Americans > 60 (> 60)
[2021-07-28 08:30] LABS: Hematocrit 34.1 % (35.3-44.9); Hemoglobin 10.3 g/dL (11.5-15.4); Mean Corpuscular HGB Conc 30.2 g/dL (31.6-35.5); Mean Corpuscular Hemoglobin 29.3 pg (28.0-33.3); Mean Corpuscular Volume 97.2 fL (83.0-100.0); Mean Platelet Volume 11.6 fL (9.4-12.4); Platelet Count 280 K/mcL (140-400); Red Blood Count 3.51 M/mcL (3.82-4.97); Red Cell Distribution Width 15.9 % (11.5-14.5); White Blood Count 22.2 K/mcL (4.3-11.1)
[2021-07-28] MEDS: Budesonide/Formoterol 160/4.5 1 PUFF INH IH SCH (10:26)
[2021-07-28 11:43] VITALS: BP 115/65; TEMP 98.4; O2SAT 96
[2021-07-28] MEDS ORDERED: FLU Vac QV 21-22 (6Month+)/PF 0.5 ML SYRINGE IM ONE (12:44)
[2021-07-30 02:26] LABS: HSV Source CSF
== END 2021-07-28 13:20 | disposition home health service (06) | DRG 871 ==
LOC: 3NENU 14:32 → EMEROOARM 14:32 → SUATTDRO 20:25 → 3NENU 21:15
PROVIDERS: ADMIT Internal Medicine; ATTEND Hospitalist